=== PATIENT | female | born 1990 | race Caucasian/White ===

== ENCOUNTER 2018-04-21 14:45 | Emergency (ER) | payer OTHER ==
[~2018-04-21] VITALS: Ht 165.1 cm; Wt 103.0 kg
[~2018-04-21 14:45] MED LIST: PROZAC40 MG
[2018-04-21] MEDS ORDERED: ALDACTONE50 MG (15:35)
[2018-04-21] MEDS ORDERED: FORTAMET500 MG (15:35)
== END 2018-04-21 18:14 | disposition home or self-care (01) ==
LOC: ER 14:45
DX: K29.70 Gastritis, unspecified, without bleeding (principal)

== ENCOUNTER 2018-05-25 14:58 | Emergency (ER) | payer OTHER ==
[~2018-05-25] VITALS: Ht 165.1 cm; Wt 104.3 kg
[~2018-05-25 14:58] MED LIST changes: +ALDACTONE50 MG; +FORTAMET500 MG
== END 2018-05-25 19:03 | disposition home or self-care (01) ==
LOC: ER 14:58
DX: L42 Pityriasis rosea (principal)

== ENCOUNTER 2019-02-22 16:40 | Emergency (ER) | payer OTHER ==
[~2019-02-22] VITALS: Ht 165.1 cm; Wt 104.3 kg
== END 2019-02-22 21:04 | disposition home or self-care (01) ==
LOC: ER 16:40
DX: J11.1 Influenza due to unidentified influenza virus with other respiratory manifestations (principal)

== ENCOUNTER 2019-09-29 07:25 | Outpatient (CLI) | payer OTHER | END 2019-09-29 07:32 | disposition home or self-care (01) | LOC: SONOGRAMA 07:25 | DX: R10.84 Generalized abdominal pain (principal); K76.0 Fatty (change of) liver, not elsewhere classified ==